=== PATIENT | female | born 1995 | race Caucasian/White ===

== ENCOUNTER 2019-07-15 19:01 | Outpatient (CLI) | payer MEDICAID, OTHER ==
[~2019-07-15] VITALS: Ht 170.2 cm; Wt 119.4 kg
[~2019-07-15 19:01] MED LIST: PREN-93 PO
[2019-07-15 19:51] VITALS: BP 98/56; PULSE 77; RESP 17; Ht 170.2 cm; Wt 119.4 kg
== END 2019-07-15 22:06 | disposition home or self-care (01) ==
LOC: OBT 19:01 → L-D 19:04 → OBT 22:06
PROVIDERS: ATTEND Obstetrics & Gynecology
DX: O36.8120 Decreased fetal movements, second trimester, not applicable or unspecified (principal); Z3A.24 24 weeks gestation of pregnancy
CPT/HCPCS: 76815; 76817; 81003; Z7500; G0463